=== PATIENT | male | born 1975 | race Caucasian/White ===

== ENCOUNTER 2018-04-25 16:57 | Emergency (ER) | payer OTHER ==
[~2018-04-25] VITALS: Ht 182.8 cm; Wt 95.3 kg
[2018-04-25] MEDS ORDERED: NAPROSYN500 MG PO (17:05)
[2018-04-25] MEDS ORDERED: ZOFRAN4 MG PO (17:05)
[2018-04-25] MEDS ORDERED: CLINDAMYCIN150 MG PO (17:05)
== END 2018-04-25 17:16 | disposition home or self-care (01) ==
LOC: ED 16:57
DX: L02.212 Cutaneous abscess of back [any part, except buttock and flank] (principal); R03.0 Elevated blood-pressure reading, without diagnosis of hypertension; Z88.0 Allergy status to penicillin